=== PATIENT | female | born 1995 | race Caucasian/White ===

== ENCOUNTER 2020-11-23 11:48 | Emergency (ER) | payer MEDICAID ==
[~2020-11-23] VITALS: Ht 162.6 cm; Wt 58.1 kg
--- NOTE | 2020-11-23 12:04 | NUR ---
Dr. Ramirez at bedside for MSE.
[2020-11-23] MEDS ORDERED: methylPREDNISolone SOD SUCC 125 MG/2 ML VIAL IV ONE (12:15)
[2020-11-23] MEDS ORDERED: diphenhydrAMINE 50 MG/1 ML VIAL IV ONE (12:15)
[2020-11-23] MEDS ORDERED: EPINEPHRINE 1 MG/1 ML AMP SQ ONE (12:15)
[2020-11-23] MEDS ORDERED: FAMOTIDINE. 20 MG/2 ML VIAL IV ONE ×2 (12:15→12:24)
[2020-11-23] MEDS ORDERED: EPINEPHRINE 1 MG/1 ML AMP ONE (12:24)
[2020-11-23] MEDS ORDERED: diphenhydrAMINE 50 MG/1 ML VIAL ONE (12:24)
[2020-11-23] MEDS ORDERED: methylPREDNISolone SOD SUCC 125 MG/2 ML VIAL ONE (12:24)
--- NOTE | 2020-11-23 12:51 | NUR ---
Patient is resting comfortably in bed with eyes closed, NAD noted. Swelling of the lips decreased. VSS.
[2020-11-23] MEDS ORDERED: FAMO40TA71 PO (14:48)
[2020-11-23] MEDS ORDERED: PRED50TA PO (14:48)
[2020-11-23] MEDS ORDERED: DIPH25CA83 PO (14:48)
[2020-11-23] MEDS ORDERED: EPIN0.3P3 IJ (14:54)
--- NOTE | 2020-11-23 15:09 | NUR ---
IV removed. Catheter intact and site benign. Pressure and 4x4 gauze applied to site. No bleeding noted.
[2020-11-23 15:10] VITALS: BP 121/65
--- NOTE | 2020-11-23 15:10 | NUR ---
Patient discharged to home in stable condition. Written and verbal after care instructions given. Patient verbalizes understanding of instructions. Stressed follow up or return to ER for worsening s/s. Pt left ER w/ seady gait accompained by family.
== END 2020-11-23 15:11 | disposition home or self-care (01) ==
LOC: ER 11:48
DX: T78.49XA Other allergy, initial encounter (principal); T78.3XXA Angioneurotic edema, initial encounter; Y92.89 Other specified places as the place of occurrence of the external cause
CPT/HCPCS: 96372; 96374; 96375; 99284; J0171; J1200; J2930; J3490; A4663; J7030

== ENCOUNTER 2021-04-29 15:40 | Emergency (ER) | payer MEDICAID, OTHER ==
[~2021-04-29] VITALS: Ht 170.2 cm; Wt 59.0 kg
[~2021-04-29 15:40] MED LIST: DIPH25CA83 PO; EPIN0.3P3 IJ; FAMO40TA71 PO; PRED50TA PO
[2021-04-29] MEDS ORDERED: TETRACAINE HCL 0.5% OPHT DROP 2 ML BOTTLE ONE (16:10)
[2021-04-29] MEDS ORDERED: FLUORESCEIN SODIUM 1 MG STRIP ONE (16:10)
[2021-04-29] MEDS ORDERED: FLUORESCEIN SODIUM 1 MG STRIP OP ONE (16:15)
[2021-04-29] MEDS ORDERED: TETRACAINE HCL 0.5% OPHT DROP 2 ML BOTTLE OP ONE (16:15)
--- NOTE | 2021-04-29 16:26 | NUR ---
Patient discharged to home in stable condition. Written and verbal after care instructions given. Patient verbalizes understanding of instructions. Stressed follow up or return to ER for worsening s/s.
== END 2021-04-29 16:28 | disposition home or self-care (01) ==
LOC: ER 15:41
DX: H57.12 Ocular pain, left eye (principal)
CPT/HCPCS: A4663

== ENCOUNTER 2022-01-25 21:45 | Emergency (ER) | payer OTHER ==
[~2022-01-25] VITALS: Ht 170.2 cm; Wt 54.0 kg
[2022-01-25 22:54] LABS: HEMATOCRIT 41.4 % (31.2-41.9); MEAN CORPUSCULAR HEMOGLOBIN 29.3 uug (24.7-32.8); MEAN CORPUSCULAR VOLUME 86.7 fL (75.5-95.3); PLATELET COUNT (AUTO) 185 K/uL (179-408)
[2022-01-25 23:02] LABS: CREATININE 0.8 mg/dL (0.6-1.3); MAGNESIUM 1.8 mg/dL (1.8-2.4); POTASSIUM 3.7 mmol/L (3.5-5.1)
[2022-01-25] MEDS ORDERED: HYDR-500 GT (23:37)
[2022-01-25] MEDS ORDERED: LORA-259 PO (23:39)
--- NOTE | 2022-01-26 00:07 | NUR ---
Patient discharged to home in stable condition. Written and verbal after care instructions given. Patient verbalizes understanding of instructions. Stressed follow up or return to ER for worsening s/s. pt ambulated with steady gait. denies pain. no SOB. no chest pain. AOx4
[2022-01-26 00:08] VITALS: BP 124/85
== END 2022-01-26 00:09 | disposition home or self-care (01) ==
LOC: ER 21:48
DX: R00.2 Palpitations (principal); L29.9 Pruritus, unspecified; E83.42 Hypomagnesemia
CPT/HCPCS: 36415; 83735; 85025; 93005; A4663